=== PATIENT | male | born 1975 | race Caucasian/White ===

== ENCOUNTER 2018-02-23 18:02 | Emergency (ER) | payer OTHER ==
[~2018-02-23] VITALS: Ht 172.7 cm; Wt 72.1 kg
[2018-02-23] MEDS ORDERED: LEVAQUIN750 MG PO (22:44)
[2018-02-23 23:03] VITALS: BP 127/93
== END 2018-02-23 23:04 | disposition home or self-care (01) ==
LOC: EME 18:02
DX: J18.1 Lobar pneumonia, unspecified organism (principal); F17.200 Nicotine dependence, unspecified, uncomplicated; Z71.6 Tobacco abuse counseling; F41.9 Anxiety disorder, unspecified
CPT/HCPCS: 71046; 93005; 94640; 99281; 99284